=== PATIENT | female | born 1960 | race Caucasian/White ===

== ENCOUNTER 2020-06-10 06:04 | Inpatient (IN) | payer BC, OTHER ==
[~2020-06-10] VITALS: Ht 157.5 cm; Wt 85.3 kg
[~2020-06-10 06:04] MED LIST: ALLERGY SHOT INJ; BIOTIN300 MCG PO; COQ-10100 MG PO; DAILY VALUE1 EACH PO; DHEA50 MG PO; EPIPEN 2-P0.3 MG/0.3 INJ; FLUOXETINE HCL20 M1 PO; GRALISE600 MG PO; IBUPROFEN800 MG PO; KEFLEX CAP 500500 MG PO; KENALOG OINT 0.80 GM TOP; L-LYSINE500 M1 PO; MULLEIN PO; NAPROSYN500 MG PO; NORCO 5-325 TA1 EACH PO; ONE-A-DAY VIT200 MC2 PO; PREMARIN0.625 MG PO; PROBIOTIC1 EACH PO; PROZAC20 MG PO; SINGULAIR10 MG PO; TRAZODONE HCL50 MG PO; VENTOLIN HFA 66.7 GM INH; VICTOZA 1818 MG/3 ML INJ; VITAMIN C 500500 MG PO; VITAMIN D33000 UNIT PO; WELLBUTRIN XL300 M1 PO; WELLBUTRIN XL300 MG PO; ZANAFLEX4 M1 PO
[2020-06-10] MEDS ORDERED: VITAMIN D310 MC2 PO (11:20)
[2020-06-10] MEDS ORDERED: BIOTIN5 M1 PO (11:21)
[2020-06-10] MEDS ORDERED: NASALIDE INH SO25 ML (11:25)
[2020-06-11 09:43] LABS: RED BLOOD COUNT 3.1 M/UL (4.00-5.10); WHITE BLOOD COUNT 10.4 K/UL (4.5-11.0)
[2020-06-11 09:44] LABS: HEMOGLOBIN 9.9 gm/dl (12.3-15.3)
[2020-06-11 10:03] LABS: BUN/CREATININE RATIO 10 (0-10)
[2020-06-12 07:58] LABS: HEMOGLOBIN 9.5 gm/dl (12.3-15.3); RED BLOOD COUNT 3.02 M/UL (4.00-5.10); WHITE BLOOD COUNT 11.9 K/UL (4.5-11.0)
[2020-06-12 08:06] LABS: BUN/CREATININE RATIO 10 (0-10)
[2020-06-13] MEDS ORDERED: NORCO 5-325 TA1 EACH PO (12:41)
== END 2020-06-13 16:10 | disposition home or self-care (01) | DRG 460 ==
LOC: ZOBSOF 06:04 → CCU 06:04
PROVIDERS: ADMIT Orthopaedic Surgery
PROC: 0SG307J Fusion of Lumbosacral Joint with Autologous Tissue Substitute, Posterior Approach, Anterior Column, Open Approach (ICD-10-PCS; 2020-06-10)
PROC: 01NB0ZZ Release Lumbar Nerve, Open Approach (ICD-10-PCS; 2020-06-10)
PROC: 0SB20ZZ Excision of Lumbar Vertebral Disc, Open Approach (ICD-10-PCS; 2020-06-10)
PROC: 0SG007J Fusion of Lumbar Vertebral Joint with Autologous Tissue Substitute, Posterior Approach, Anterior Column, Open Approach (ICD-10-PCS; principal; 2020-06-10 07:30)
DX: M43.16 Spondylolisthesis, lumbar region (principal); M48.061 Spinal stenosis, lumbar region without neurogenic claudication; M54.16 Radiculopathy, lumbar region; J30.2 Other seasonal allergic rhinitis; M19.90 Unspecified osteoarthritis, unspecified site; G89.29 Other chronic pain; M54.9 Dorsalgia, unspecified; R73.03 Prediabetes; Z91.041 Radiographic dye allergy status; Z98.84 Bariatric surgery status; Z90.49 Acquired absence of other specified parts of digestive tract; Z83.3 Family history of diabetes mellitus; Z79.899 Other long term (current) drug therapy
CPT/HCPCS: 36415; 72100; 76000; 80048; 82962; 85027; 86850; 86900; 86901; 94760; 97110-GP-CQ; 97116-GP-CQ; 97162; 97165; 97535; C1713; C1762; J0690; J1040; J1170; J2001; J2250; J2405; J2704; J2710; J3370; J7030; J7040; J7120

== ENCOUNTER → 2021-04-25 | Outpatient (CLI) | payer BC ==
[~2021-04-25] MED LIST changes: +BIOTIN5 M1 PO; +NASALIDE INH SO25 ML; +VITAMIN D310 MC2 PO
== END ==
LOC: EMI 08:12
DX: M51.16 Intervertebral disc disorders with radiculopathy, lumbar region (principal); M48.061 Spinal stenosis, lumbar region without neurogenic claudication
CPT/HCPCS: 72148

== ENCOUNTER → 2021-05-27 | Outpatient (CLI) | payer BC | LOC: KOH-I 14:49 | DX: Z01.818 Encounter for other preprocedural examination (principal); M51.06 Intervertebral disc disorders with myelopathy, lumbar region; M51.36 Other intervertebral disc degeneration, lumbar region | CPT/HCPCS: 72131 ==

== ENCOUNTER → 2021-06-03 | Outpatient (CLI) | payer BC ==
[~2021-06-03] MED LIST changes: +ADULT LOW DOSE81 MG PO; +CELEBREX200 MG PO; +CENTRUM SILVER1 EAC1 PO; +COLESEVELAM HC625 MG PO; +ESTRADIOL0.5 MG PO; +LIPITOR10 MG PO; +MEGA BIOTIN10000 MCG PO
[2021-06-03 12:16] LABS: HEMOGLOBIN 14.4 gm/dl (12.3-15.3); RED BLOOD COUNT 4.75 M/UL (4.00-5.10); WHITE BLOOD COUNT 5.7 K/UL (4.5-11.0)
[2021-06-03 12:36] LABS: BUN/CREATININE RATIO 16 (0-10)
== END ==
LOC: EDSTATUS 10:30 → OPSV2 10:30
PROVIDERS: Orthopaedic Surgery
DX: Z01.818 Encounter for other preprocedural examination (principal); M47.26 Other spondylosis with radiculopathy, lumbar region
CPT/HCPCS: 71046; 80048; 81001; 83036; 85027; 85610; 85730; 87081; 93005

== ENCOUNTER 2021-06-16 05:29 | Inpatient (IN) | payer BC ==
[~2021-06-16] VITALS: Ht 157.5 cm; Wt 76.7 kg
[2021-06-16] MEDS ORDERED: ALLERGY INJECTIONS SC (07:12)
[2021-06-16] MEDS ORDERED: EPIPEN 2-P0.3 MG/0.3 INJ (07:13)
[2021-06-16 14:14] LABS: HEMOGLOBIN 13.2 gm/dl (12.3-15.3); RED BLOOD COUNT 4.31 M/UL (4.00-5.10)
[2021-06-16 14:27] LABS: BUN/CREATININE RATIO 9 (0-10)
[2021-06-17 07:15] LABS: WHITE BLOOD COUNT 9.6 K/UL (4.5-11.0)
[2021-06-17 07:27] LABS: RED BLOOD COUNT 3.71 M/UL (4.00-5.10)
[2021-06-17 07:39] LABS: BUN/CREATININE RATIO 12 (0-10)
[2021-06-18 06:46] LABS: HEMOGLOBIN 10.3 gm/dl (12.3-15.3); RED BLOOD COUNT 3.41 M/UL (4.00-5.10); WHITE BLOOD COUNT 8.6 K/UL (4.5-11.0)
[2021-06-18 07:37] LABS: BUN/CREATININE RATIO 14 (0-10)
[2021-06-19 06:43] LABS: HEMOGLOBIN 9.7 gm/dl (12.3-15.3); RED BLOOD COUNT 3.3 M/UL (4.00-5.10); WHITE BLOOD COUNT 7.4 K/UL (4.5-11.0)
[2021-06-19 07:03] LABS: BUN/CREATININE RATIO 12 (0-10)
== END 2021-06-19 14:22 | disposition home or self-care (01) | DRG 454 ==
LOC: OR 05:29 → M/S 15:56 → OR 06-17 05:29 → M/S 06-17 05:29
PROVIDERS: ADMIT Orthopaedic Surgery
PROC: 0SG00AJ Fusion of Lumbar Vertebral Joint with Interbody Fusion Device, Posterior Approach, Anterior Column, Open Approach (ICD-10-PCS; 2021-06-16)
PROC: 0ST20ZZ Resection of Lumbar Vertebral Disc, Open Approach (ICD-10-PCS; 2021-06-16)
PROC: 0SG0071 Fusion of Lumbar Vertebral Joint with Autologous Tissue Substitute, Posterior Approach, Posterior Column, Open Approach (ICD-10-PCS; 2021-06-16)
PROC: 4A11X4G Monitoring of Peripheral Nervous Electrical Activity, Intraoperative, External Approach (ICD-10-PCS; 2021-06-16)
PROC: 01NB0ZZ Release Lumbar Nerve, Open Approach (ICD-10-PCS; principal; 2021-06-16 07:30)
DX: M48.061 Spinal stenosis, lumbar region without neurogenic claudication (principal); D62 Acute posthemorrhagic anemia; M51.36 Other intervertebral disc degeneration, lumbar region; E11.9 Type 2 diabetes mellitus without complications; Z20.822 Contact with and (suspected) exposure to COVID-19; F32.A Depression, unspecified; I95.9 Hypotension, unspecified; F41.9 Anxiety disorder, unspecified; M51.16 Intervertebral disc disorders with radiculopathy, lumbar region; E78.5 Hyperlipidemia, unspecified; M47.26 Other spondylosis with radiculopathy, lumbar region; G47.33 Obstructive sleep apnea (adult) (pediatric); Z96.612 Presence of left artificial shoulder joint; K59.00 Constipation, unspecified; Z98.41 Cataract extraction status, right eye; Z98.84 Bariatric surgery status; Z98.890 Other specified postprocedural states; Z90.710 Acquired absence of both cervix and uterus; Z90.49 Acquired absence of other specified parts of digestive tract; Z90.89 Acquired absence of other organs; Z79.899 Other long term (current) drug therapy; Z83.3 Family history of diabetes mellitus; Z91.041 Radiographic dye allergy status; Z79.82 Long term (current) use of aspirin
CPT/HCPCS: 72100; 72110; 76000; 80048; 82962; 85025; 85027; 97116; 97116-GP-CQ; 97161; 97166; 97530; C1713; C1762; C1781; J0690; J1040; J1100; J1170; J1644; J2001; J2250; J2370; J2405; J2704; J3010; J3370; J7030; J7040; J7120

== ENCOUNTER → 2021-10-02 | Outpatient (CLI) | payer BC ==
[~2021-10-02] MED LIST changes: +ALLERGY INJECTIONS SC
== END ==
LOC: KOH-I 11:04
DX: R10.32 Left lower quadrant pain (principal); S76.211A Strain of adductor muscle, fascia and tendon of right thigh, initial encounter; X58.XXXA Exposure to other specified factors, initial encounter
CPT/HCPCS: 73721

== ENCOUNTER → 2022-02-11 | Outpatient (CLI) | payer BC ==
[~2022-02-11] MED LIST changes: +BENTYL 10MG CAP10 MG PO; +ONDANSETRON ODT4 MG PO; +OZEMPIC INJ; +WOMEN'S 50 PLU1 EACH PO; +[UNRECOGNIZED DRUG - OTHER] PO
[2022-02-11 09:15] LABS: HEMOGLOBIN 13.7 gm/dl (12.3-15.3); RED BLOOD COUNT 4.58 M/UL (4.00-5.10); WHITE BLOOD COUNT 3.5 K/UL (4.5-11.0)
[2022-02-11 09:31] LABS: BUN/CREATININE RATIO 13 (0-10)
== END ==
LOC: OPSV2 08:00 → EDSTATUS 08:00 → OPSV2 08:06
PROVIDERS: Orthopaedic Surgery
DX: Z01.818 Encounter for other preprocedural examination (principal); M46.1 Sacroiliitis, not elsewhere classified
CPT/HCPCS: 71046; 80048; 85027; 85610; 85730; 93005

== ENCOUNTER → 2022-03-03 | Day surgery (SDC) | payer BC ==
[~2022-03-03] VITALS: Ht 157.5 cm; Wt 64.9 kg
[2022-03-03 07:19] LABS: BUN/CREATININE RATIO 15 (0-10)
== END | disposition home or self-care (01) ==
LOC: OR 06:11
PROVIDERS: Orthopaedic Surgery
DX: M53.3 Sacrococcygeal disorders, not elsewhere classified (principal); Z79.899 Other long term (current) drug therapy; Z91.011 Allergy to milk products; Z91.041 Radiographic dye allergy status
CPT/HCPCS: 72202; 76000; 80048; 86850; 86900; 86901; 97116; 97161; C1776; J0690; J1100; J1170; J1885; J2001; J2250; J2405; J2704; J2710; J3010